=== PATIENT | male | born 1945 | race Caucasian/White ===

== ENCOUNTER 2019-12-20 09:28 | Inpatient (IN) ==
[2019-12-20] MEDS ORDERED: ENOXAPARIN 100 MG/ML SYRINGE SUBCUT STA (10:19)
[2019-12-20] MEDS ORDERED: NITROGLYCERIN SL 0.4 MG TABLET SL PRN (10:19)
[2019-12-20 10:34] LABS: Basophils % 0.3 % (0.0-0.8); Eosinophils # 0.1 10*3/uL (0.0-0.87); Eosinophils % 0.6 % (0.00-10.9); Hematocrit 28.2 VOL% (42.0-52.0); Hemoglobin 9.3 GM/DL (14.0-18.0); Immature Granulocytes % 2.4 %; Immature Granulocytes Absolute 0.19 #; Lymphocytes # 0.3 10*3/uL (1.4-4.0); Mean Corpuscular Volume 96.9 FL (87-102); Mean Platelet Volume 9.7 FL (9.6-12.0); Monocytes % 10.3 % (1.7-12.7); NRBC # 0.02 10*3/uL; Neutrophils % 82.4 % (38.7-73.9); Red Blood Count 2.91 MC/CUMM (3.8-5.5); Red Cell Distribution Width 15.5 % (9.3-17.3); White Blood Count 7.9 T/CUMM (4-12)
[2019-12-20 10:38] LABS: Platelet Count 82 T/CUMM (130-400)
[2019-12-20 10:53] LABS: Band Neutrophils 3 % (0-10); Lymphocytes 2 % (20-55); Segmented Neutrophils 81 % (50-85); Total Cells Counted 100
[2019-12-20 10:54] LABS: Hypochromasia 1+; Ovalocytes Slight; Platelet Estimate Decreased
[2019-12-20 11:01] LABS: Bilirubin,Total 0.5 MG/DL (0.2-1.0); Osmolality,Calculated 281.5 MOS/KG (273-304); Total Protein 5.9 G/DL (6.4-8.3)
[2019-12-20] MEDS ORDERED: MORPHINE 4 MG/1 ML VIAL ONE (11:22)
[2019-12-20] MEDS ORDERED: MORPHINE 4 MG/1 ML VIAL IV STA (11:25)
[2019-12-20] MEDS ORDERED: ONDANSETRON 4 MG/2 ML VIAL IV PRN (12:39)
[2019-12-20] MEDS ORDERED: POTASSIUM CHLORIDE 20 MEQ TABLET PO PRN (12:39)
[2019-12-20] MEDS ORDERED: GLUCAGON 1 MG VIAL IM PRN (12:39)
[2019-12-20] MEDS ORDERED: LACTULOSE 20 GM/30 ML UDCUP PO PRN (12:39)
[2019-12-20] MEDS ORDERED: DOCUSATE SODIUM 100 MG CAPSULE PO PRN (12:39)
[2019-12-20] MEDS ORDERED: DEXTROSE 10% 250 ML BAG IV PRN (12:39)
[2019-12-20] MEDS ORDERED: ALUM/MAG/SIMETH/LIDO VISC 1:1 30 ML BOTTLE PO PRN (12:39)
[2019-12-20] MEDS ORDERED: MAGNESIUM SULF RIDER 2 GM in PREMIX 1 EACH IV PRN (12:39)
[2019-12-20] MEDS: MORPHINE 4 MG/1 ML VIAL IV PRN ×2 (13:42→21:28)
[2019-12-20] MEDS: SODIUM CHLORIDE 0.45% 1,000 ML IV SCH (14:38)
[2019-12-20] MEDS: INSULIN LISPRO 100 UNIT/ML SUBCUT SCH ×2 (16:59→21:20)
[2019-12-20] MEDS ORDERED: SIMVASTATIN 20 MG TABLET PO SCH (21:00)
[2019-12-20] MEDS: ASCORBIC ACID 500 MG TABLET PO SCH (21:19)
[2019-12-20] MEDS: carvediloL 6.25 MG TABLET PO SCH (21:19)
[2019-12-21] MEDS: SODIUM CHLORIDE 0.45% 1,000 ML IV SCH ×2 (00:21→09:09)
[2019-12-21 06:19] LABS: Basophils % 0.4 % (0.0-0.8); Eosinophils % 0.6 % (0.00-10.9); Hematocrit 25.8 VOL% (42.0-52.0); Hemoglobin 8.6 GM/DL (14.0-18.0); Immature Granulocytes Absolute 0.14 #; Lymphocytes # 0.4 10*3/uL (1.4-4.0); Lymphocytes % 5.7 % (21.2-54.2); Mean Corpuscular HGB Conc 33.3 GM/DL (32-36); Mean Corpuscular Volume 96.3 FL (87-102); Mean Platelet Volume 10.1 FL (9.6-12.0); Monocytes % 12.5 % (1.7-12.7); Neutrophils % 78.8 % (38.7-73.9); Red Blood Count 2.68 MC/CUMM (3.8-5.5); Red Cell Distribution Width 15.3 % (9.3-17.3)
[2019-12-21 06:21] LABS: Platelet Count 68 T/CUMM (130-400)
[2019-12-21 06:43] LABS: Band Neutrophils 11 % (0-10); Eosinophils 1 % (0-10); Hypochromasia Slight; Lymphocytes 6 % (20-55); Nucleated Red Blood Cells 1 (0-5); Ovalocytes Slight; Segmented Neutrophils 74 % (50-85); Total Cells Counted 100
[2019-12-21 06:44] LABS: Microcytosis Slight; Polychromasia Slight
[2019-12-21 06:45] LABS: Platelet Estimate Decreased
[2019-12-21 06:50] LABS: Albumin 2.6 G/DL (3.4-5.0); Bilirubin,Total 0.6 MG/DL (0.2-1.0); Calcium 8.3 MG/DL (8.5-10.1); Osmolality,Calculated 274.7 MOS/KG (273-304); Risk Ratio 6.78; Thyroid Stimulating Hormone 1.29 uIU/ml (0.358-3.74); Total Protein 5.5 G/DL (6.4-8.3); VLDL CHOLESTEROL 91.6 MG/DL
[2019-12-21 07:40] VITALS: BP 143/71
[2019-12-21] MEDS ORDERED: LOSARTAN 25 MG TABLET PO SCH (09:00)
[2019-12-21] MEDS ORDERED: PANTOPRAZOLE 40 MG TABLET PO SCH (09:00)
[2019-12-21] MEDS ORDERED: ASPIRIN EC 81 MG TABLET PO SCH (09:00)
[2019-12-21] MEDS ORDERED: ASPIRIN EC 325 MG TABLET PO SCH (09:00)
[2019-12-21] MEDS ORDERED: ISOSORBIDE MONONITRATE 60 MG TABLET PO SCH (09:00)
[2019-12-21] MEDS: INSULIN LISPRO 100 UNIT/ML SUBCUT SCH (09:02)
[2019-12-21] MEDS: ASCORBIC ACID 500 MG TABLET PO SCH (09:04)
[2019-12-21] MEDS: carvediloL 6.25 MG TABLET PO SCH (09:05)
[2019-12-21] MEDS ORDERED: MAGNESIUM SULF RIDER 4 GM in PREMIX 1 EACH IV ONE (10:11)
[2019-12-21] MEDS ORDERED: MAGNESIUM OXIDE 400 MG TABLET PO ONE ×2 (10:25→10:27)
[2019-12-21] MEDS ORDERED: ENOXAPARIN 100 MG/ML SYRINGE SUBCUT SCH (13:00)
== END 2019-12-21 11:31 | disposition home or self-care (01) | DRG 313 ==
LOC: N.ED 09:28 → N.EDINP 12:39 → N.TELES 14:25
PROVIDERS: ADMIT Internal Medicine; ATTEND Internal Medicine